=== PATIENT | female | born 1960 | race Caucasian/White ===

== ENCOUNTER 2021-11-10 11:53 | Inpatient (IN) | payer MEDICAID ==
[~2021-11-10] VITALS: Ht 157.5 cm; Wt 107.0 kg
[2021-11-10 14:51] LABS: BASOPHILS % 0.7 % (0.0-2.0); EOSINOPHILS % 5.7 % (0.0-5.0); HEMOGLOBIN. 12.8 g/dL (12.0-16.0); LYMPHOCYTES % 21.5 % (20.0-50.0); MEAN CORPUSCULAR HEMOGLOBIN 31.5 pg (28.0-32.0); MEAN CORPUSCULAR VOLUME 98.9 fL (81.0-99.0); MEAN PLATELET VOLUME 8.1 fl (7.4-10.4); MONOCYTES % 7.6 % (2.0-8.0); NEUTROPHILS % 64.5 % (40.0-76.0); PLATELET 315 x1000/uL (130-400); RED BLOOD CELL COUNT 4.05 mill/uL (4.2-5.4); RED CELL DISTRIBUTION WIDTH 17.8 % (11.6-14.6)
[2021-11-10 14:56] LABS: CHLORIDE 108 mEq/L (98-107)
[2021-11-10] MEDS ORDERED: ENOXAPARIN 100MG/ML SYR SUBCUT ONE (17:00)
[2021-11-11] MEDS ORDERED: ONDANSETRON HCL 4MG/2ML INJ IV PRN (09:00)
[2021-11-11] MEDS ORDERED: ACETAMINOPHEN 325MG TABLET PO PRN (09:00)
[2021-11-11] MEDS ORDERED: DIPHENHYDRAMINE 50MG/ML VIAL IV PRN (09:00)
[2021-11-11] MEDS ORDERED: CLONIDINE 0.1MG TABLET PO PRN (09:00)
[2021-11-11] MEDS ORDERED: IPRATROPIUM/ALBUTEROL 0.5-3(2.5)MG/3ML NEB HHN PRN (09:00)
[2021-11-11] MEDS ORDERED: POTASSIUM CHLORIDE 20MEQ/PACKET PO SCH (09:00)
[2021-11-11 10:30] VITALS: BP 148/66
[2021-11-11 11:43] LABS: INR 1.1; PROTHROMBIN TIME 11.4 sec (9.6-11.0)
[2021-11-11 12:00] VITALS: BP 113/61
[2021-11-11] MEDS: ENOXAPARIN 100MG/ML SYR SUBCUT SCH ×2 (14:09→20:31)
[2021-11-11 16:00] VITALS: BP 112/48
[2021-11-11 20:00] VITALS: BP 93/76
[2021-11-12] VITALS: BP 95/56
[2021-11-12 04:00] VITALS: BP 125/65
[2021-11-12 08:00] VITALS: BP 114/52
[2021-11-12] MEDS: ENOXAPARIN 100MG/ML SYR SUBCUT SCH (08:50)
[2021-11-12 09:55] LABS: BASOPHILS % 0.7 % (0.0-2.0); EOSINOPHILS % 6.9 % (0.0-5.0); HEMATOCRIT. 38.9 % (36.0-48.0); HEMOGLOBIN. 12.8 g/dL (12.0-16.0); LYMPHOCYTES % 21.9 % (20.0-50.0); MEAN CORPUSCULAR HEMOGLOBIN 32.6 pg (28.0-32.0); MEAN CORPUSCULAR VOLUME 98.9 fL (81.0-99.0); MONOCYTES % 5.6 % (2.0-8.0); NEUTROPHILS % 64.9 % (40.0-76.0); PLATELET 300 x1000/uL (130-400); RED BLOOD CELL COUNT 3.93 mill/uL (4.2-5.4); RED CELL DISTRIBUTION WIDTH 17.5 % (11.6-14.6)
[2021-11-12 10:00] LABS: CHLORIDE 108 mEq/L (98-107)
[2021-11-12] MEDS ORDERED: LOV40 SQ (11:22)
[2021-11-12 12:00] VITALS: BP 129/66
[2021-11-12 16:19] VITALS: BP 114/72
== END 2021-11-12 16:43 | DRG 197 ==
LOC: ER 11:53 → 6EST 15:31 → EDBEDREQ 16:44 → EDBEDREQTM 16:44 → ENRESERV 11-11 07:22
PROVIDERS: ADMIT Internal Medicine; ATTEND Internal Medicine
DX: I82.413 Acute embolism and thrombosis of femoral vein, bilateral (principal); I82.433 Acute embolism and thrombosis of popliteal vein, bilateral; E87.6 Hypokalemia; I10 Essential (primary) hypertension; K21.9 Gastro-esophageal reflux disease without esophagitis; M19.90 Unspecified osteoarthritis, unspecified site; Z20.822 Contact with and (suspected) exposure to COVID-19; E66.9 Obesity, unspecified; Z68.41 Body mass index [BMI] 40.0-44.9, adult
CPT/HCPCS: 36415; 80048; 80053; 84443; 85025; 87426; 93970; 99285; J1650

== ENCOUNTER 2022-01-01 22:39 | Emergency (ER) | payer MEDICAID ==
[~2022-01-01] VITALS: Ht 162.6 cm; Wt 82.0 kg
[~2022-01-01 22:39] MED LIST: LOV40 SQ
[2022-01-01] MEDS ORDERED: ONDANSETRON HCL 4MG/2ML INJ IV STA (23:08)
[2022-01-01] MEDS ORDERED: MAGNESIUM/ALUMINUM HYDROXIDE/SIMETHICONE 30ML UDC PO STA (23:08)
[2022-01-01] MEDS ORDERED: SODIUM CHLORIDE 0.9% 1,000 ML IV ONE (23:15)
[2022-01-02 00:38] LABS: HEMATOCRIT. 44.7 % (36.0-48.0); HEMOGLOBIN. 14.4 g/dL (12.0-16.0); MEAN CORPUSCULAR HEMOGLOBIN 31.7 pg (28.0-32.0); MEAN CORPUSCULAR VOLUME 98.4 fL (81.0-99.0); PLATELET 279 x1000/uL (130-400); RED BLOOD CELL COUNT 4.54 mill/uL (4.2-5.4); RED CELL DISTRIBUTION WIDTH 16.9 % (11.6-14.6)
[2022-01-02 00:59] LABS: CHLORIDE 107 mEq/L (98-107)
[2022-01-02] MEDS ORDERED: ONDA4TAB5 MT (02:08)
[2022-01-02 05:26] LABS: PLATELET ESTIMATE NORMAL
[2022-01-02 06:23] VITALS: BP 130/82
== END 2022-01-02 06:32 | disposition home or self-care (01) ==
LOC: ER 22:39
DX: K29.70 Gastritis, unspecified, without bleeding (principal); I10 Essential (primary) hypertension; M19.90 Unspecified osteoarthritis, unspecified site; K21.9 Gastro-esophageal reflux disease without esophagitis; Z86.718 Personal history of other venous thrombosis and embolism; Z87.19 Personal history of other diseases of the digestive system; Z98.890 Other specified postprocedural states; Z79.01 Long term (current) use of anticoagulants
CPT/HCPCS: 36415; 80053; 83605; 83690; 85025; 93005; 96374; 99285; J2405; J7030

== ENCOUNTER 2022-12-11 15:07 | Inpatient (IN) | payer MEDICAID ==
[~2022-12-11] VITALS: Ht 157.5 cm; Wt 79.4 kg
[~2022-12-11 15:07] MED LIST changes: +ACET650S27 RC; +ATOR10TA PO; +BISA10SU62 RC; +CLON0.1T PO; +DOCU100T PO; +ENOX40SY27 SQ; +FERR325T6 PO; +FOLI-43 PO; +IPRA3AMP31 IH; -LOV40 SQ; +MOM PO; +NA P230E RC; +OMEP1CAP32 PO; +ONDA4TAB5 MT; +SENN-155 PO
[2022-12-11] MEDS ORDERED: SODIUM CHLORIDE 0.9% 1,000 ML IV ONE ×3 (16:00→17:30)
[2022-12-11 17:07] LABS: HEMATOCRIT. 30.1 % (36.0-48.0); HEMOGLOBIN. 9.9 g/dL (12.0-16.0); MEAN CORPUSCULAR HEMOGLOBIN 34.5 pg (28.0-32.0); MEAN CORPUSCULAR VOLUME 105.1 fL (81.0-99.0); MEAN PLATELET VOLUME 9.1 fl (7.4-10.4); PLATELET 219 x1000/uL (130-400); RED BLOOD CELL COUNT 2.87 mill/uL (4.2-5.4); RED CELL DISTRIBUTION WIDTH 14.9 % (11.6-14.6)
[2022-12-11] MEDS ORDERED: FLUMAZENIL 0.1 MG/ML 5ML VIAL IV ONE (17:15)
[2022-12-11] MEDS ORDERED: CEFEPIME 1,000 MG in DEXTROSE 5% WATER 50 ML IV SCH (17:30)
[2022-12-11] MEDS ORDERED: VANCOMYCIN 1G PREMIX 200 ML IV SCH (17:30)
[2022-12-11 18:01] LABS: CHLORIDE 106 mEq/L (98-107)
[2022-12-11 18:08] LABS: ETHANOL BLOOD < 10 mg/dL
[2022-12-11] MEDS ORDERED: FLUMAZENIL 0.1 MG/ML 5ML VIAL IV NR (18:30)
[2022-12-11] MEDS ORDERED: NOREPINEPHRINE 8 MG in DEXT 5% WATER 242 ML IV PRN ×2 (19:00→19:30)
[2022-12-11 19:29] LABS: PLATELET ESTIMATE NORMAL
[2022-12-12] VITALS (59 sets, daily range): BP systolic 48–133; BP diastolic 20–89
[2022-12-12 02:24] LABS: CLARITY URINE TURBID (CLEAR); COLOR URINE DARK YELLOW (YELLOW); KETONES URINE TRACE (NEGATIVE); LEUKOCYTE ESTERASE URINE 3+ (NEGATIVE); NITRITE URINE NEGATIVE (NEGATIVE); OCCULT BLOOD URINE 2+ (NEGATIVE); PROTEIN URINE 2+ (NEGATIVE); UROBILINOGEN URINE 0.2 E.U./dL (0.2-1.0)
[2022-12-12 02:44] LABS: *AMPHETAMINES SCREEN URINE NEGATIVE (NEGATIVE); *BARBITURATES SCREEN URINE NEGATIVE (NEGATIVE); *BENZODIAZEPINES SCREEN URINE PRESUMTIVE POSITIVE (NEGATIVE); *COCAINE SCREEN URINE NEGATIVE (NEGATIVE); CANNABINOID URINE SCREEN NEGATIVE (NEGATIVE); METHADONE URINE SCREEN NEGATIVE (NEGATIVE); OPIATES URINE SCREEN NEGATIVE (NEGATIVE); PHENCYCLIDINE URINE SCREEN NEGATIVE (NEGATIVE)
[2022-12-12] MEDS ORDERED: POTASSIUM CHLORIDE INJ 40 MEQ in DEXT 5% WATER 250 ML IV ONE (09:00)
[2022-12-12] MEDS ORDERED: CLONIDINE 0.1MG TABLET PO PRN (09:00)
[2022-12-12] MEDS ORDERED: IPRATROPIUM/ALBUTEROL 0.5-3(2.5)MG/3ML NEB HHN PRN (09:00)
[2022-12-12] MEDS ORDERED: PIPERACILLIN/TAZ 3.375G PREMIX 50 ML IV SCH (09:15)
[2022-12-12] MEDS: KCL 20MEQ/100ML X 2 FOR TOTAL KCL 40MEQ/200ML IV SCH ×2 (09:59→12:31)
[2022-12-12] MEDS: SODIUM CHLORIDE 0.9% 1,000 ML IV SCH ×3 (10:00→22:30)
[2022-12-12] MEDS ORDERED: PIPERACILLIN/TAZOBACTAM 3.375 G in DEXTROSE 5% WATER 50 ML IV NR (10:30)
[2022-12-12] MEDS: CEFEPIME 2,000 MG in DEXT 5% WATER 100 ML IV SCH (12:31)
[2022-12-12] MEDS: PHENYLEPHRINE 100 MG in DEXT 5% WATER 240 ML IV PRN ×2 (12:48→22:27)
[2022-12-12] MEDS: ACETAMINOPHEN 325MG TABLET PO PRN (12:49)
[2022-12-12] MEDS: ONDANSETRON HCL 4MG/2ML INJ IV PRN ×2 (13:03→18:58)
[2022-12-12 13:15] LABS: MEAN CORPUSCULAR HEMOGLOBIN 34.8 pg (28.0-32.0); MEAN PLATELET VOLUME 8.3 fl (7.4-10.4); PLATELET 193 x1000/uL (130-400); RED BLOOD CELL COUNT 3.45 mill/uL (4.2-5.4); RED CELL DISTRIBUTION WIDTH 14.6 % (11.6-14.6)
[2022-12-12 13:20] LABS: HEMATOCRIT. 35.5 % (36.0-48.0)
[2022-12-12] MEDS ORDERED: PIPERACILLIN/TAZOBACTAM 3.375 G in DEXTROSE 5% WATER 50 ML IV SCH (14:00)
[2022-12-12] MEDS ORDERED: VANCOMYCIN 500MG PREMIX 100 ML IV SCH (14:00)
[2022-12-12 14:09] LABS: PLATELET ESTIMATE NORMAL
[2022-12-12 15:05] LABS: VITAMIN B12 SERUM > 2000.0 pg/mL (211-911)
[2022-12-12] MEDS ORDERED: ALBUTEROL (0.083%) 2.5MG/3ML NEB HHN PRN (15:15)
[2022-12-12] MEDS ORDERED: IPRATROPIUM BROMIDE (0.02%) 0.5MG/2.5ML NEB HHN PRN (15:15)
[2022-12-12] MEDS ORDERED: POTASSIUM CHLORIDE 20MEQ/PACKET PO NR (17:00)
[2022-12-12] MEDS: NOREPINEPHRINE 32 MG in DEXT 5% WATER 218 ML IV PRN (18:15)
[2022-12-12 18:25] LABS: BG BASE EXCESS -8.5 mmol/L (-2.0-2.0); BG CARBOXYHEMOGLOBIN 0.3 % (0.5-1.5); BG DEOXYHEMOGLOBIN 3.2 % (0.0-5.0); BG FRACTION INSPIRED OXYGEN 40; BG HCO3 ACT 14.4 mmol/L (22.0-26.0); BG OXYGEN SATURATION 96.8 % (92.0-98.5); BG OXYHEMOGLOBIN 95.5 % (94.0-97.0); BG PCO2 23.9 mmHg (35.0-45.0); BG PH 7.399 (7.350-7.450); BG PO2 85.2 mmHg (75.0-100.0); BG SAMPLE SITE RIGHT RADIAL; BG VENT MODE NASAL CANNULA
[2022-12-12] MEDS ORDERED: ENOXAPARIN 100MG/ML SYR SUBCUT NR (19:15)
[2022-12-12] MEDS ORDERED: NALOXONE HCL 0.4MG/ML VIAL IV PRN (20:15)
[2022-12-12] MEDS: MORPHINE SULFATE 2 MG/ML CPJ (NOT FOR IM USE) IV PRN (20:27)
[2022-12-12 21:24] LABS: INR 1.3
[2022-12-13] VITALS (96 sets, daily range): BP systolic 79–167; BP diastolic 38–136
[2022-12-13] MEDS: NOREPINEPHRINE 32 MG in DEXT 5% WATER 218 ML IV PRN ×2 (02:56→11:50)
[2022-12-13] MEDS: MORPHINE SULFATE 2 MG/ML CPJ (NOT FOR IM USE) IV PRN ×2 (03:32→16:46)
[2022-12-13 05:35] LABS: HEMATOCRIT. 37.7 % (36.0-48.0); HEMOGLOBIN. 12.7 g/dL (12.0-16.0); MEAN CORPUSCULAR HEMOGLOBIN 34.9 pg (28.0-32.0); MEAN CORPUSCULAR VOLUME 103.9 fL (81.0-99.0); MEAN PLATELET VOLUME 8.8 fl (7.4-10.4); PLATELET 167 x1000/uL (130-400); RED BLOOD CELL COUNT 3.63 mill/uL (4.2-5.4); RED CELL DISTRIBUTION WIDTH 14.8 % (11.6-14.6)
[2022-12-13 05:37] LABS: CHLORIDE 110 mEq/L (98-107)
[2022-12-13] MEDS ORDERED: PIPERACILLIN/TAZOBACTAM 3.375 G in DEXTROSE 5% WATER 50 ML IV SCH (06:00)
[2022-12-13] MEDS: PHENYLEPHRINE 100 MG in DEXT 5% WATER 240 ML IV PRN ×2 (08:56→18:54)
[2022-12-13 10:41] LABS: PLATELET ESTIMATE NORMAL
[2022-12-13] MEDS ORDERED: POTASSIUM CHLORIDE INJ 40 MEQ in DEXT 5% WATER 250 ML IV NR (13:00)
[2022-12-13] MEDS ORDERED: VANCOMYCIN 750MG PREMIX 150 ML IV SCH (14:00)
[2022-12-13] MEDS: CEFEPIME 2,000 MG in DEXT 5% WATER 100 ML IV SCH (14:22)
[2022-12-13] MEDS: SODIUM CHLORIDE 0.9% 1,000 ML IV SCH (14:23)
[2022-12-13] MEDS: ENOXAPARIN 100MG/ML SYR SUBCUT SCH (16:40)
[2022-12-14] VITALS (80 sets, daily range): BP systolic 72–123; BP diastolic 15–79
[2022-12-14] MEDS: SODIUM CHLORIDE 0.9% 1,000 ML IV SCH ×2 (01:07→15:49)
[2022-12-14] MEDS: PHENYLEPHRINE 100 MG in DEXT 5% WATER 240 ML IV PRN ×3 (02:12→18:49)
[2022-12-14 05:33] LABS: CHLORIDE 114 mEq/L (98-107)
[2022-12-14] MEDS ORDERED: *PATIENT'S OWN MEDICATION STORAGE XX SCH (05:45)
[2022-12-14 05:46] LABS: BASOPHILS % 0.1 % (0.0-2.0); HEMATOCRIT. 36.6 % (36.0-48.0); HEMOGLOBIN. 12.4 g/dL (12.0-16.0); LYMPHOCYTES % 9.7 % (20.0-50.0); MEAN CORPUSCULAR HEMOGLOBIN 34.6 pg (28.0-32.0); MEAN CORPUSCULAR VOLUME 102.1 fL (81.0-99.0); MEAN PLATELET VOLUME 9.5 fl (7.4-10.4); MONOCYTES % 2.4 % (2.0-8.0); NEUTROPHILS % 86.8 % (40.0-76.0); PLATELET 129 x1000/uL (130-400); RED BLOOD CELL COUNT 3.59 mill/uL (4.2-5.4); RED CELL DISTRIBUTION WIDTH 14.7 % (11.6-14.6)
[2022-12-14] MEDS: ENOXAPARIN 100MG/ML SYR SUBCUT SCH ×2 (06:19→18:20)
[2022-12-14] MEDS ORDERED: POTASSIUM CHLORIDE 20MEQ TABLET SR PO NR (08:00)
[2022-12-14] MEDS: CEFEPIME 2,000 MG in DEXT 5% WATER 100 ML IV SCH (12:28)
[2022-12-14] MEDS: MIDODRINE HCL 5MG TABLET PO SCH ×2 (15:21→21:21)
[2022-12-14] MEDS: MORPHINE SULFATE 2 MG/ML CPJ (NOT FOR IM USE) IV PRN (15:22)
[2022-12-15] VITALS (99 sets, daily range): BP systolic 44–159; BP diastolic 29–143
[2022-12-15] MEDS: PHENYLEPHRINE 100 MG in DEXT 5% WATER 240 ML IV PRN ×2 (04:43→13:52)
[2022-12-15] MEDS: SODIUM CHLORIDE 0.9% 1,000 ML IV SCH ×2 (04:45→18:23)
[2022-12-15 05:31] LABS: BASOPHILS % 0.3 % (0.0-2.0); EOSINOPHILS % 1.6 % (0.0-5.0); HEMATOCRIT. 33.8 % (36.0-48.0); HEMOGLOBIN. 11.6 g/dL (12.0-16.0); LYMPHOCYTES % 18.6 % (20.0-50.0); MEAN CORPUSCULAR HEMOGLOBIN 34.9 pg (28.0-32.0); MEAN CORPUSCULAR VOLUME 101.8 fL (81.0-99.0); MEAN PLATELET VOLUME 9.7 fl (7.4-10.4); MONOCYTES % 4.2 % (2.0-8.0); NEUTROPHILS % 75.3 % (40.0-76.0); PLATELET 126 x1000/uL (130-400); RED BLOOD CELL COUNT 3.32 mill/uL (4.2-5.4); RED CELL DISTRIBUTION WIDTH 14.7 % (11.6-14.6)
[2022-12-15 05:47] LABS: CHLORIDE 119 mEq/L (98-107)
[2022-12-15] MEDS: ENOXAPARIN 100MG/ML SYR SUBCUT SCH ×2 (06:44→18:23)
[2022-12-15] MEDS: MIDODRINE HCL 5MG TABLET PO SCH ×3 (06:46→21:48)
[2022-12-15] MEDS ORDERED: POTASSIUM CHLORIDE 20MEQ TABLET SR PO SCH (11:00)
[2022-12-15] MEDS ORDERED: MAGNESIUM 4 G PREMIX 100 ML IV ONE (11:30)
[2022-12-15] MEDS: CEFEPIME 2,000 MG in DEXT 5% WATER 100 ML IV SCH (13:39)
[2022-12-16] VITALS (88 sets, daily range): BP systolic 71–137; BP diastolic 35–87
[2022-12-16 06:02] LABS: CHLORIDE 114 mEq/L (98-107)
[2022-12-16] MEDS: MIDODRINE HCL 5MG TABLET PO SCH ×3 (06:06→21:17)
[2022-12-16] MEDS: ENOXAPARIN 100MG/ML SYR SUBCUT SCH ×2 (06:06→17:19)
[2022-12-16 07:21] LABS: BASOPHILS % 0.3 % (0.0-2.0); EOSINOPHILS % 2.2 % (0.0-5.0); HEMATOCRIT. 32.9 % (36.0-48.0); HEMOGLOBIN. 11.2 g/dL (12.0-16.0); LYMPHOCYTES % 24.7 % (20.0-50.0); MEAN CORPUSCULAR HEMOGLOBIN 34.7 pg (28.0-32.0); MEAN CORPUSCULAR VOLUME 102.1 fL (81.0-99.0); MEAN PLATELET VOLUME 10.1 fl (7.4-10.4); MONOCYTES % 5.6 % (2.0-8.0); NEUTROPHILS % 67.2 % (40.0-76.0); PLATELET 159 x1000/uL (130-400); RED BLOOD CELL COUNT 3.22 mill/uL (4.2-5.4); RED CELL DISTRIBUTION WIDTH 14.5 % (11.6-14.6)
[2022-12-16] MEDS: PHENYLEPHRINE 100 MG in DEXT 5% WATER 240 ML IV PRN (08:03)
[2022-12-16] MEDS: CEFEPIME 2,000 MG in DEXT 5% WATER 100 ML IV SCH (12:06)
[2022-12-16] MEDS: MEROPENEM 1,000 MG in SODIUM CHLORIDE 0.9% 100 ML IV SCH (20:22)
[2022-12-17] VITALS (97 sets, daily range): BP systolic 83–152; BP diastolic 39–84
[2022-12-17] MEDS: DIPHENHYDRAMINE 50MG/ML VIAL IV PRN ×2 (01:23→02:22)
[2022-12-17] MEDS: PHENYLEPHRINE 100 MG in DEXT 5% WATER 240 ML IV PRN (01:23)
[2022-12-17] MEDS: MEROPENEM 1,000 MG in SODIUM CHLORIDE 0.9% 100 ML IV SCH ×3 (03:15→20:00)
[2022-12-17] MEDS: MIDODRINE HCL 5MG TABLET PO SCH ×3 (06:22→22:42)
[2022-12-17 06:48] LABS: HEMATOCRIT. 31.6 % (36.0-48.0); HEMOGLOBIN. 10.7 g/dL (12.0-16.0); MEAN CORPUSCULAR HEMOGLOBIN 34.9 pg (28.0-32.0); MEAN CORPUSCULAR VOLUME 102.9 fL (81.0-99.0); MEAN PLATELET VOLUME 10.1 fl (7.4-10.4); PLATELET 205 x1000/uL (130-400); RED BLOOD CELL COUNT 3.07 mill/uL (4.2-5.4); RED CELL DISTRIBUTION WIDTH 14.8 % (11.6-14.6)
[2022-12-17 06:52] LABS: CHLORIDE 113 mEq/L (98-107)
[2022-12-17] MEDS: ENOXAPARIN 100MG/ML SYR SUBCUT SCH ×2 (07:07→19:01)
[2022-12-17] MEDS ORDERED: POTASSIUM CHLORIDE 20MEQ TABLET SR PO NR (10:30)
[2022-12-17] MEDS ORDERED: LIDOCAINE HCL 1% 10 MG/ML 10ML VIAL ONE (10:34)
[2022-12-17 12:25] LABS: PLATELET ESTIMATE NORMAL
[2022-12-17] MEDS: GUAIFENESIN 600MG ER TABLET PO SCH ×2 (14:40→22:41)
[2022-12-18] VITALS (86 sets, daily range): BP systolic 80–131; BP diastolic 29–72
[2022-12-18] MEDS: MEROPENEM 1,000 MG in SODIUM CHLORIDE 0.9% 100 ML IV SCH ×3 (04:29→22:34)
[2022-12-18 05:20] LABS: BASOPHILS % 0.2 % (0.0-2.0); EOSINOPHILS % 2.6 % (0.0-5.0); HEMATOCRIT. 32.9 % (36.0-48.0); HEMOGLOBIN. 11.1 g/dL (12.0-16.0); LYMPHOCYTES % 27.9 % (20.0-50.0); MEAN CORPUSCULAR HEMOGLOBIN 34.7 pg (28.0-32.0); MEAN CORPUSCULAR VOLUME 102.9 fL (81.0-99.0); MEAN PLATELET VOLUME 9.1 fl (7.4-10.4); MONOCYTES % 7.4 % (2.0-8.0); NEUTROPHILS % 61.9 % (40.0-76.0); PLATELET 242 x1000/uL (130-400); RED BLOOD CELL COUNT 3.19 mill/uL (4.2-5.4); RED CELL DISTRIBUTION WIDTH 14.7 % (11.6-14.6)
[2022-12-18 05:24] LABS: CHLORIDE 113 mEq/L (98-107)
[2022-12-18] MEDS: MIDODRINE HCL 5MG TABLET PO SCH ×3 (06:03→22:38)
[2022-12-18] MEDS: ENOXAPARIN 100MG/ML SYR SUBCUT SCH ×2 (06:05→17:57)
[2022-12-18] MEDS: GUAIFENESIN 600MG ER TABLET PO SCH ×3 (06:05→22:39)
[2022-12-18] MEDS: DEXT 5%/0.45% NACL 1000ML 1,000 ML IV SCH ×2 (12:21→22:39)
[2022-12-19] VITALS (23 sets, daily range): BP systolic 84–127; BP diastolic 45–70
[2022-12-19 06:10] LABS: BASOPHILS % 0.3 % (0.0-2.0); EOSINOPHILS % 2.3 % (0.0-5.0); HEMATOCRIT. 29.9 % (36.0-48.0); HEMOGLOBIN. 10.1 g/dL (12.0-16.0); LYMPHOCYTES % 27.8 % (20.0-50.0); MEAN CORPUSCULAR VOLUME 103.4 fL (81.0-99.0); MEAN PLATELET VOLUME 8.6 fl (7.4-10.4); MONOCYTES % 7.7 % (2.0-8.0); NEUTROPHILS % 61.9 % (40.0-76.0); PLATELET 295 x1000/uL (130-400); RED BLOOD CELL COUNT 2.89 mill/uL (4.2-5.4); RED CELL DISTRIBUTION WIDTH 14.4 % (11.6-14.6)
[2022-12-19] MEDS: GUAIFENESIN 600MG ER TABLET PO SCH ×3 (06:12→20:58)
[2022-12-19] MEDS: MEROPENEM 1,000 MG in SODIUM CHLORIDE 0.9% 100 ML IV SCH ×3 (06:12→20:57)
[2022-12-19] MEDS: ENOXAPARIN 100MG/ML SYR SUBCUT SCH ×2 (06:13→17:57)
[2022-12-19] MEDS: MIDODRINE HCL 5MG TABLET PO SCH ×3 (06:13→20:58)
[2022-12-19 06:16] LABS: CHLORIDE 111 mEq/L (98-107)
[2022-12-19] MEDS: DEXT 5%/0.45% NACL 1000ML 1,000 ML IV SCH ×2 (06:26→17:05)
[2022-12-19] MEDS ORDERED: POTASSIUM CHLORIDE 20MEQ TABLET SR PO NR (10:15)
[2022-12-20] VITALS (7 sets, daily range): BP systolic 103–108; BP diastolic 45–57
[2022-12-20] MEDS: DEXT 5%/0.45% NACL 1000ML 1,000 ML IV SCH ×3 (03:30→23:30)
[2022-12-20] MEDS: MEROPENEM 1,000 MG in SODIUM CHLORIDE 0.9% 100 ML IV SCH ×3 (04:00→21:18)
[2022-12-20] MEDS: ENOXAPARIN 100MG/ML SYR SUBCUT SCH ×2 (06:08→18:48)
[2022-12-20 06:32] LABS: BASOPHILS % 0.7 % (0.0-2.0); EOSINOPHILS % 1.5 % (0.0-5.0); HEMOGLOBIN. 11.4 g/dL (12.0-16.0); MEAN CORPUSCULAR HEMOGLOBIN 36.1 pg (28.0-32.0); MEAN PLATELET VOLUME 8.8 fl (7.4-10.4); MONOCYTES % 8.2 % (2.0-8.0); NEUTROPHILS % 61.6 % (40.0-76.0); PLATELET 347 x1000/uL (130-400); RED BLOOD CELL COUNT 3.14 mill/uL (4.2-5.4); RED CELL DISTRIBUTION WIDTH 15.1 % (11.6-14.6)
[2022-12-20] MEDS: MIDODRINE HCL 5MG TABLET PO SCH ×3 (06:49→21:19)
[2022-12-20] MEDS: GUAIFENESIN 600MG ER TABLET PO SCH ×3 (06:49→21:19)
[2022-12-20 07:36] LABS: CHLORIDE 110 mEq/L (98-107)
[2022-12-20] MEDS ORDERED: MIDO5TAB4 PO (10:14)
[2022-12-20] MEDS ORDERED: APIX5TAB MT (10:14)
[2022-12-20] MEDS: ACETAMINOPHEN 325MG TABLET PO PRN (21:25)
[2022-12-21 04:00] VITALS: BP 112/51
[2022-12-21] MEDS: GUAIFENESIN 600MG ER TABLET PO SCH ×3 (05:53→21:00)
[2022-12-21] MEDS: MIDODRINE HCL 5MG TABLET PO SCH ×3 (05:53→21:01)
[2022-12-21] MEDS: ENOXAPARIN 100MG/ML SYR SUBCUT SCH ×2 (05:59→17:31)
[2022-12-21 09:46] VITALS: BP 100/52
[2022-12-21 12:00] VITALS: BP 126/53
[2022-12-21] MEDS: DEXT 5%/0.45% NACL 1000ML 1,000 ML IV SCH ×2 (13:15→21:02)
[2022-12-21] MEDS: DIPHENHYDRAMINE 50MG/ML VIAL IV PRN (13:40)
[2022-12-21 16:00] VITALS: BP 123/56
[2022-12-21 20:00] VITALS: BP 99/45
[2022-12-21] MEDS: ACETAMINOPHEN 325MG TABLET PO PRN (20:59)
[2022-12-22] VITALS: BP 91/40
[2022-12-22 04:00] VITALS: BP 91/37
[2022-12-22] MEDS: DEXT 5%/0.45% NACL 1000ML 1,000 ML IV SCH ×2 (05:30→15:51)
[2022-12-22] MEDS: ENOXAPARIN 100MG/ML SYR SUBCUT SCH ×2 (06:33→18:43)
[2022-12-22] MEDS: GUAIFENESIN 600MG ER TABLET PO SCH ×3 (06:33→21:29)
[2022-12-22] MEDS: MIDODRINE HCL 5MG TABLET PO SCH ×3 (06:33→21:27)
[2022-12-22 08:00] VITALS: BP 112/54
[2022-12-22] MEDS ORDERED: BISACODYL 10MG SUPP PR PRN (08:15)
[2022-12-22] MEDS: ACETAMINOPHEN 325MG TABLET PO PRN ×3 (09:03→23:58)
[2022-12-22] MEDS: SIMETHICONE 80MG TABLET CHEW PO PRN (09:36)
[2022-12-22 12:00] VITALS: BP 128/57
[2022-12-22 16:00] VITALS: BP 111/53
[2022-12-22 20:00] VITALS: BP 118/56
[2022-12-23] VITALS: BP 126/60
[2022-12-23 04:00] VITALS: BP 92/41
[2022-12-23] MEDS: GUAIFENESIN 600MG ER TABLET PO SCH ×4 (06:20→21:13)
[2022-12-23] MEDS: MIDODRINE HCL 5MG TABLET PO SCH ×3 (06:21→21:06)
[2022-12-23] MEDS: ENOXAPARIN 100MG/ML SYR SUBCUT SCH ×2 (06:25→17:31)
[2022-12-23] MEDS: DEXT 5%/0.45% NACL 1000ML 1,000 ML IV SCH ×3 (06:25→21:07)
[2022-12-23 08:00] VITALS: BP 108/47
[2022-12-23] MEDS: MICONAZOLE NITRATE 2% OINT 71GM TOP SCH ×2 (09:35→21:07)
[2022-12-23] MEDS: ACETAMINOPHEN 325MG TABLET PO PRN (09:35)
[2022-12-23 12:00] VITALS: BP 112/50
[2022-12-23 16:00] VITALS: BP 141/63
[2022-12-23] MEDS ORDERED: NALOXONE HCL 0.4MG/ML VIAL IV PRN (16:15)
[2022-12-23] MEDS: MORPHINE SULFATE 2 MG/ML CPJ (NOT FOR IM USE) IV PRN (17:37)
[2022-12-23 20:00] VITALS: BP 100/42
[2022-12-24] VITALS: BP 117/53
[2022-12-24] MEDS: MORPHINE SULFATE 2 MG/ML CPJ (NOT FOR IM USE) IV PRN (03:46)
[2022-12-24 04:00] VITALS: BP 113/48
[2022-12-24] MEDS: GUAIFENESIN 600MG ER TABLET PO SCH ×3 (06:00→21:43)
[2022-12-24] MEDS: MIDODRINE HCL 5MG TABLET PO SCH ×3 (06:02→21:44)
[2022-12-24] MEDS: ENOXAPARIN 100MG/ML SYR SUBCUT SCH ×2 (06:02→18:59)
[2022-12-24] MEDS: DEXT 5%/0.45% NACL 1000ML 1,000 ML IV SCH ×2 (06:03→13:56)
[2022-12-24 08:00] VITALS: BP 108/66
[2022-12-24] MEDS: MICONAZOLE NITRATE 2% OINT 71GM TOP SCH ×2 (08:54→22:04)
[2022-12-24] MEDS: ACETAMINOPHEN 325MG TABLET PO PRN ×3 (08:54→21:44)
[2022-12-24 12:00] VITALS: BP 118/62
[2022-12-24 16:00] VITALS: BP 121/62
[2022-12-24 20:00] VITALS: BP 125/59
[2022-12-25] VITALS: BP 113/55
[2022-12-25 04:00] VITALS: BP 121/61
[2022-12-25] MEDS: GUAIFENESIN 600MG ER TABLET PO SCH ×3 (05:07→21:17)
[2022-12-25] MEDS: DEXT 5%/0.45% NACL 1000ML 1,000 ML IV SCH ×3 (05:07→23:30)
[2022-12-25] MEDS: MIDODRINE HCL 5MG TABLET PO SCH ×3 (05:08→21:18)
[2022-12-25] MEDS: ENOXAPARIN 100MG/ML SYR SUBCUT SCH ×2 (05:08→18:07)
[2022-12-25] MEDS: ACETAMINOPHEN 325MG TABLET PO PRN ×3 (05:09→18:06)
[2022-12-25 08:00] VITALS: BP 100/63
[2022-12-25] MEDS: MICONAZOLE NITRATE 2% OINT 71GM TOP SCH ×2 (09:00→21:26)
[2022-12-25 12:00] VITALS: BP 135/55
[2022-12-25 16:00] VITALS: BP 113/58
[2022-12-25 20:00] VITALS: BP 125/64
[2022-12-25] MEDS: SIMETHICONE 80MG TABLET CHEW PO PRN (21:17)
[2022-12-25] MEDS: MORPHINE SULFATE 2 MG/ML CPJ (NOT FOR IM USE) IV PRN (21:17)
[2022-12-26] VITALS: BP 124/62
[2022-12-26 04:00] VITALS: BP 129/66
[2022-12-26] MEDS: GUAIFENESIN 600MG ER TABLET PO SCH ×3 (06:00→22:00)
[2022-12-26] MEDS: MIDODRINE HCL 5MG TABLET PO SCH ×3 (06:00→22:00)
[2022-12-26] MEDS: ENOXAPARIN 100MG/ML SYR SUBCUT SCH ×2 (06:12→18:43)
[2022-12-26 08:00] VITALS: BP 108/55
[2022-12-26] MEDS: MICONAZOLE NITRATE 2% OINT 71GM TOP SCH ×2 (09:00→22:35)
[2022-12-26 12:00] VITALS: BP 119/60
[2022-12-26] MEDS: DEXT 5%/0.45% NACL 1000ML 1,000 ML IV SCH ×2 (13:56→17:33)
[2022-12-26 16:00] VITALS: BP 118/58
[2022-12-26] MEDS: ACETAMINOPHEN 325MG TABLET PO PRN (16:33)
[2022-12-26] MEDS: SIMETHICONE 80MG TABLET CHEW PO PRN (16:33)
[2022-12-26 20:00] VITALS: BP 123/57
[2022-12-26] MEDS: MORPHINE SULFATE 2 MG/ML CPJ (NOT FOR IM USE) IV PRN (22:35)
[2022-12-27] VITALS: BP 117/55
[2022-12-27 04:00] VITALS: BP 116/62
[2022-12-27] MEDS: ENOXAPARIN 100MG/ML SYR SUBCUT SCH ×2 (05:48→17:46)
[2022-12-27] MEDS: MIDODRINE HCL 5MG TABLET PO SCH ×3 (05:48→22:00)
[2022-12-27] MEDS: DEXT 5%/0.45% NACL 1000ML 1,000 ML IV SCH ×2 (05:48→15:39)
[2022-12-27] MEDS: GUAIFENESIN 600MG ER TABLET PO SCH ×3 (05:48→22:33)
[2022-12-27 08:00] VITALS: BP 102/57
[2022-12-27] MEDS: MICONAZOLE NITRATE 2% OINT 71GM TOP SCH (08:34)
[2022-12-27] MEDS: SIMETHICONE 80MG TABLET CHEW PO PRN ×2 (10:28→20:27)
[2022-12-27 12:00] VITALS: BP 106/48
[2022-12-27 15:59] VITALS: BP 120/64
[2022-12-27 16:00] VITALS: BP 120/64
[2022-12-28] VITALS: BP 102/57
[2022-12-28] MEDS: DEXT 5%/0.45% NACL 1000ML 1,000 ML IV SCH ×2 (01:30→13:29)
[2022-12-28 04:00] VITALS: BP 119/65
[2022-12-28] MEDS: MIDODRINE HCL 5MG TABLET PO SCH ×3 (06:00→22:00)
[2022-12-28] MEDS: GUAIFENESIN 600MG ER TABLET PO SCH ×3 (06:00→22:00)
[2022-12-28] MEDS: SIMETHICONE 80MG TABLET CHEW PO PRN ×2 (06:48→22:08)
[2022-12-28] MEDS: ACETAMINOPHEN 325MG TABLET PO PRN ×2 (06:48→18:14)
[2022-12-28] MEDS: ENOXAPARIN 100MG/ML SYR SUBCUT SCH (06:49)
[2022-12-28 08:00] VITALS: BP 122/58
[2022-12-28] MEDS: MICONAZOLE NITRATE 2% OINT 71GM TOP SCH ×2 (09:00→21:00)
[2022-12-28 09:33] LABS: HEMATOCRIT 31.9 % (36.0-48.0); HEMOGLOBIN 10.7 g/dL (12.0-16.0); MEAN CORPUSCULAR HEMOGLOBIN 34.9 pg (28.0-32.0); PLATELET 307 x1000/uL (130-400); RED BLOOD CELL COUNT 3.07 mill/uL (4.2-5.4); RED CELL DISTRIBUTION WIDTH 14.7 % (11.6-14.6)
[2022-12-28 09:42] LABS: CHLORIDE 109 mEq/L (98-107)
[2022-12-28 12:00] VITALS: BP 121/58
[2022-12-28] MEDS ORDERED: POTASSIUM CHLORIDE 20MEQ TABLET SR PO SCH (12:30)
[2022-12-28 16:00] VITALS: BP 121/56
[2022-12-28] MEDS: ENOXAPARIN 80MG/0.8ML SYR SUBCUT SCH (18:14)
[2022-12-28 20:00] VITALS: BP 113/42
[2022-12-29] VITALS: BP 117/65
[2022-12-29 04:00] VITALS: BP 121/66
[2022-12-29] MEDS: GUAIFENESIN 600MG ER TABLET PO SCH ×3 (06:00→21:38)
[2022-12-29] MEDS: MIDODRINE HCL 5MG TABLET PO SCH ×3 (06:00→21:40)
[2022-12-29] MEDS: ACETAMINOPHEN 325MG TABLET PO PRN ×2 (07:24→19:16)
[2022-12-29] MEDS: ENOXAPARIN 80MG/0.8ML SYR SUBCUT SCH ×2 (07:25→19:11)
[2022-12-29] MEDS: DEXT 5%/0.45% NACL 1000ML 1,000 ML IV SCH ×2 (07:29→19:11)
[2022-12-29 08:00] VITALS: BP 108/40
[2022-12-29 12:00] VITALS: BP 107/59
[2022-12-29] MEDS: MICONAZOLE NITRATE 2% OINT 71GM TOP SCH ×2 (12:15→21:45)
[2022-12-29 16:00] VITALS: BP 123/53
[2022-12-29 20:00] VITALS: BP 118/64
[2022-12-30] VITALS: BP 124/61
[2022-12-30 04:00] VITALS: BP 128/74
[2022-12-30] MEDS: DEXT 5%/0.45% NACL 1000ML 1,000 ML IV SCH ×3 (04:56→23:30)
[2022-12-30] MEDS: ENOXAPARIN 80MG/0.8ML SYR SUBCUT SCH ×2 (05:02→17:41)
[2022-12-30] MEDS: GUAIFENESIN 600MG ER TABLET PO SCH ×3 (05:03→21:54)
[2022-12-30] MEDS: MIDODRINE HCL 5MG TABLET PO SCH ×3 (05:03→21:54)
[2022-12-30] MEDS: ACETAMINOPHEN 325MG TABLET PO PRN (05:09)
[2022-12-30 07:52] VITALS: BP 102/46
[2022-12-30] MEDS: MULTIVITAMINS,THER W-MINERALS TABLET PO SCH (09:12)
[2022-12-30] MEDS: MICONAZOLE NITRATE 2% OINT 71GM TOP SCH ×2 (09:13→20:25)
[2022-12-30 12:00] VITALS: BP 109/59
[2022-12-30 16:00] VITALS: BP 118/60
[2022-12-30 20:00] VITALS: BP 126/63
[2022-12-30] MEDS: SIMETHICONE 80MG TABLET CHEW PO PRN (21:54)
[2022-12-31] VITALS: BP 111/58
[2022-12-31 04:00] VITALS: BP 107/51
[2022-12-31] MEDS: ENOXAPARIN 80MG/0.8ML SYR SUBCUT SCH ×2 (05:13→18:02)
[2022-12-31] MEDS: MIDODRINE HCL 5MG TABLET PO SCH ×3 (05:15→21:13)
[2022-12-31] MEDS: GUAIFENESIN 600MG ER TABLET PO SCH ×3 (05:15→21:12)
[2022-12-31 08:05] VITALS: BP 105/48
[2022-12-31] MEDS: DEXT 5%/0.45% NACL 1000ML 1,000 ML IV SCH ×2 (08:40→19:30)
[2022-12-31] MEDS: MULTIVITAMINS,THER W-MINERALS TABLET PO SCH (08:40)
[2022-12-31] MEDS: MICONAZOLE NITRATE 2% OINT 71GM TOP SCH ×2 (08:41→21:13)
[2022-12-31 12:32] VITALS: BP 100/51
[2022-12-31 16:23] VITALS: BP 119/63
[2022-12-31 20:00] VITALS: BP 112/51
[2023-01-01] VITALS: BP 112/60
[2023-01-01] MEDS: ACETAMINOPHEN 325MG TABLET PO PRN ×3 (00:31→21:42)
[2023-01-01 04:00] VITALS: BP 108/47
[2023-01-01] MEDS: DEXT 5%/0.45% NACL 1000ML 1,000 ML IV SCH ×2 (05:59→15:30)
[2023-01-01] MEDS: ENOXAPARIN 80MG/0.8ML SYR SUBCUT SCH ×2 (06:00→17:46)
[2023-01-01] MEDS: MIDODRINE HCL 5MG TABLET PO SCH ×3 (06:00→21:39)
[2023-01-01] MEDS: GUAIFENESIN 600MG ER TABLET PO SCH ×3 (06:01→21:39)
[2023-01-01 08:00] VITALS: BP 129/52
[2023-01-01] MEDS: MICONAZOLE NITRATE 2% OINT 71GM TOP SCH ×2 (09:00→21:39)
[2023-01-01] MEDS: MULTIVITAMINS,THER W-MINERALS TABLET PO SCH (09:47)
[2023-01-01 12:00] VITALS: BP 102/50
[2023-01-01 16:06] VITALS: BP 106/59
[2023-01-01 20:00] VITALS: BP 94/48
[2023-01-02 00:03] VITALS: BP 96/53
[2023-01-02] MEDS: DEXT 5%/0.45% NACL 1000ML 1,000 ML IV SCH ×3 (02:24→23:38)
[2023-01-02 04:23] VITALS: BP 101/59
[2023-01-02] MEDS: MIDODRINE HCL 5MG TABLET PO SCH ×3 (05:45→21:08)
[2023-01-02] MEDS: ENOXAPARIN 80MG/0.8ML SYR SUBCUT SCH ×2 (05:45→19:04)
[2023-01-02] MEDS: GUAIFENESIN 600MG ER TABLET PO SCH ×3 (05:47→21:07)
[2023-01-02 08:00] VITALS: BP 107/56
[2023-01-02] MEDS: MICONAZOLE NITRATE 2% OINT 71GM TOP SCH ×2 (09:00→21:18)
[2023-01-02] MEDS: MULTIVITAMINS,THER W-MINERALS TABLET PO SCH (09:21)
[2023-01-02 12:00] VITALS: BP 106/55
[2023-01-02 16:00] VITALS: BP 106/55
[2023-01-02] MEDS: ACETAMINOPHEN 325MG TABLET PO PRN (18:10)
[2023-01-02 20:00] VITALS: BP 93/52
[2023-01-03] VITALS: BP 101/56
[2023-01-03 04:00] VITALS: BP 99/65
[2023-01-03] MEDS: GUAIFENESIN 600MG ER TABLET PO SCH ×3 (05:04→21:34)
[2023-01-03] MEDS: ENOXAPARIN 80MG/0.8ML SYR SUBCUT SCH ×2 (05:05→18:19)
[2023-01-03] MEDS: MIDODRINE HCL 5MG TABLET PO SCH ×3 (05:05→21:34)
[2023-01-03] MEDS: DEXT 5%/0.45% NACL 1000ML 1,000 ML IV SCH ×2 (07:30→18:20)
[2023-01-03 08:00] VITALS: BP 105/54
[2023-01-03] MEDS: MICONAZOLE NITRATE 2% OINT 71GM TOP SCH ×2 (09:00→21:00)
[2023-01-03] MEDS: MULTIVITAMINS,THER W-MINERALS TABLET PO SCH (09:00)
[2023-01-03 12:00] VITALS: BP 105/50
[2023-01-03 16:00] VITALS: BP 129/59
[2023-01-03 20:00] VITALS: BP 107/46
[2023-01-03] MEDS: ACETAMINOPHEN 325MG TABLET PO PRN (21:46)
[2023-01-04] VITALS: BP 98/57
[2023-01-04] MEDS: DEXT 5%/0.45% NACL 1000ML 1,000 ML IV SCH ×2 (03:22→23:30)
[2023-01-04 04:00] VITALS: BP 102/55
[2023-01-04] MEDS: GUAIFENESIN 600MG ER TABLET PO SCH ×2 (05:22→21:26)
[2023-01-04] MEDS: MIDODRINE HCL 5MG TABLET PO SCH ×2 (05:24→21:30)
[2023-01-04] MEDS: ENOXAPARIN 80MG/0.8ML SYR SUBCUT SCH (05:24)
[2023-01-04] MEDS ORDERED: LIDOCAINE 2%/EPINEPHRINE 1:200,000 20 ML VIAL INJ NR (11:00)
[2023-01-04] MEDS ORDERED: LIDOCAINE HCL 2% JELLY 5ML TOP NR (11:00)
[2023-01-04] MEDS: MULTIVITAMINS,THER W-MINERALS TABLET PO SCH (11:30)
[2023-01-04] MEDS ORDERED: LIDOCAINE 2% 6ML GLYDO MM NR ×2 (11:30→11:45)
[2023-01-04] MEDS: ACETAMINOPHEN 325MG TABLET PO PRN ×2 (11:31→21:22)
[2023-01-04 16:00] VITALS: BP 100/50
[2023-01-04 20:00] VITALS: BP 112/67
[2023-01-04] MEDS: MICONAZOLE NITRATE 2% OINT 71GM TOP SCH (21:00)
[2023-01-05] VITALS: BP 105/47
[2023-01-05 04:00] VITALS: BP 104/55
[2023-01-05] MEDS ORDERED: POVIDONE-IODINE OINT 28.4GM TOP NR (05:00)
[2023-01-05] MEDS: MIDODRINE HCL 5MG TABLET PO SCH ×3 (06:16→21:24)
[2023-01-05] MEDS: ACETAMINOPHEN 325MG TABLET PO PRN ×2 (06:17→15:51)
[2023-01-05] MEDS: DEXT 5%/0.45% NACL 1000ML 1,000 ML IV SCH ×2 (09:30→22:30)
[2023-01-05] MEDS: MULTIVITAMINS,THER W-MINERALS TABLET PO SCH (10:41)
[2023-01-05] MEDS: MICONAZOLE NITRATE 2% OINT 71GM TOP SCH ×2 (10:41→21:21)
[2023-01-05] MEDS: GUAIFENESIN 600MG ER TABLET PO SCH ×2 (15:42→21:21)
[2023-01-05 20:00] VITALS: BP 113/55
[2023-01-06] VITALS: BP 105/58
[2023-01-06 04:00] VITALS: BP 102/48
[2023-01-06] MEDS: GUAIFENESIN 600MG ER TABLET PO SCH ×3 (05:25→20:48)
[2023-01-06] MEDS: MIDODRINE HCL 5MG TABLET PO SCH ×3 (05:25→20:54)
[2023-01-06] MEDS: DEXT 5%/0.45% NACL 1000ML 1,000 ML IV SCH ×2 (05:31→17:05)
[2023-01-06 06:08] LABS: CHLORIDE 108 mEq/L (98-107)
[2023-01-06 06:14] LABS: BASOPHILS % 0.4 % (0.0-2.0); EOSINOPHILS % 8.4 % (0.0-5.0); HEMATOCRIT. 32.7 % (36.0-48.0); LYMPHOCYTES % 26.8 % (20.0-50.0); MEAN CORPUSCULAR HEMOGLOBIN 35.1 pg (28.0-32.0); MEAN CORPUSCULAR VOLUME 104.5 fL (81.0-99.0); MEAN PLATELET VOLUME 7.9 fl (7.4-10.4); MONOCYTES % 7.5 % (2.0-8.0); NEUTROPHILS % 56.9 % (40.0-76.0); PLATELET 400 x1000/uL (130-400); RED BLOOD CELL COUNT 3.13 mill/uL (4.2-5.4); RED CELL DISTRIBUTION WIDTH 15.3 % (11.6-14.6)
[2023-01-06 08:00] VITALS: BP 116/56
[2023-01-06] MEDS: MULTIVITAMINS,THER W-MINERALS TABLET PO SCH (09:54)
[2023-01-06 12:00] VITALS: BP 126/60
[2023-01-06] MEDS: MICONAZOLE NITRATE 2% OINT 71GM TOP SCH ×2 (13:07→20:54)
[2023-01-06 16:00] VITALS: BP 126/59
[2023-01-06] MEDS: ENOXAPARIN 80MG/0.8ML SYR SUBCUT SCH ×2 (17:32→18:00)
[2023-01-06 20:00] VITALS: BP 114/58
[2023-01-06] MEDS: DIPHENHYDRAMINE 50MG/ML VIAL IV PRN (20:48)
[2023-01-07] VITALS: BP 98/53
[2023-01-07] MEDS: DEXT 5%/0.45% NACL 1000ML 1,000 ML IV SCH ×3 (00:27→21:33)
[2023-01-07 04:00] VITALS: BP 92/48
[2023-01-07] MEDS: ENOXAPARIN 80MG/0.8ML SYR SUBCUT SCH ×2 (06:46→17:09)
[2023-01-07] MEDS: GUAIFENESIN 600MG ER TABLET PO SCH ×3 (06:47→21:30)
[2023-01-07] MEDS: MIDODRINE HCL 5MG TABLET PO SCH ×3 (06:48→22:00)
[2023-01-07 08:00] VITALS: BP 97/62
[2023-01-07] MEDS: MULTIVITAMINS,THER W-MINERALS TABLET PO SCH (08:20)
[2023-01-07] MEDS: MICONAZOLE NITRATE 2% OINT 71GM TOP SCH ×2 (08:23→21:00)
[2023-01-07 12:00] VITALS: BP 107/61
[2023-01-07 16:00] VITALS: BP 100/64
[2023-01-07 20:00] VITALS: BP 103/58
[2023-01-07] MEDS: ACETAMINOPHEN 325MG TABLET PO PRN (21:32)
[2023-01-08] VITALS: BP 103/42
[2023-01-08 04:00] VITALS: BP 104/55
[2023-01-08] MEDS: MIDODRINE HCL 5MG TABLET PO SCH ×3 (06:00→21:49)
[2023-01-08] MEDS: ENOXAPARIN 80MG/0.8ML SYR SUBCUT SCH ×2 (06:06→17:09)
[2023-01-08] MEDS: GUAIFENESIN 600MG ER TABLET PO SCH ×3 (06:06→21:50)
[2023-01-08 08:00] VITALS: BP 108/53
[2023-01-08] MEDS: MULTIVITAMINS,THER W-MINERALS TABLET PO SCH (08:53)
[2023-01-08] MEDS: DEXT 5%/0.45% NACL 1000ML 1,000 ML IV SCH ×2 (08:53→17:07)
[2023-01-08] MEDS: ACETAMINOPHEN 325MG TABLET PO PRN (08:57)
[2023-01-08] MEDS: MICONAZOLE NITRATE 2% OINT 71GM TOP SCH ×2 (09:05→21:00)
[2023-01-08 12:00] VITALS: BP 108/60
[2023-01-08 16:00] VITALS: BP 106/57
[2023-01-08 20:00] VITALS: BP 114/50
[2023-01-09] VITALS: BP 91/42
[2023-01-09] MEDS: ACETAMINOPHEN 325MG TABLET PO PRN (01:26)
[2023-01-09] MEDS: DEXT 5%/0.45% NACL 1000ML 1,000 ML IV SCH ×3 (03:26→23:30)
[2023-01-09] MEDS: MIDODRINE HCL 5MG TABLET PO SCH ×3 (05:47→21:39)
[2023-01-09] MEDS: GUAIFENESIN 600MG ER TABLET PO SCH ×3 (05:48→21:37)
[2023-01-09] MEDS: ENOXAPARIN 80MG/0.8ML SYR SUBCUT SCH ×2 (06:00→17:40)
[2023-01-09 07:14] VITALS: BP 110/49
[2023-01-09 08:00] VITALS: BP 105/56
[2023-01-09] MEDS: MULTIVITAMINS,THER W-MINERALS TABLET PO SCH (11:02)
[2023-01-09 12:00] VITALS: BP 105/53
[2023-01-09 16:00] VITALS: BP 94/40
[2023-01-09 20:00] VITALS: BP 94/52
[2023-01-09] MEDS: MICONAZOLE NITRATE 2% OINT 71GM TOP SCH ×2 (21:00→21:40)
[2023-01-10] MEDS: ENOXAPARIN 80MG/0.8ML SYR SUBCUT SCH ×2 (06:00→18:00)
[2023-01-10] MEDS: GUAIFENESIN 600MG ER TABLET PO SCH ×3 (07:18→21:39)
[2023-01-10] MEDS: MIDODRINE HCL 5MG TABLET PO SCH ×2 (07:18→21:40)
[2023-01-10] MEDS: MULTIVITAMINS,THER W-MINERALS TABLET PO SCH (09:00)
[2023-01-10 11:05] VITALS: BP 123/65
[2023-01-10 12:34] VITALS: BP 110/60
[2023-01-10 16:27] VITALS: BP 116/58
[2023-01-10] MEDS ORDERED: NALOXONE HCL 0.4MG/ML VIAL IV PRN (17:45)
[2023-01-10] MEDS: MORPHINE SULFATE 2 MG/ML CPJ (NOT FOR IM USE) IV PRN (17:56)
[2023-01-10] MEDS ORDERED: MORPHINE SULFATE 2 MG/ML CPJ (NOT FOR IM USE) IV PRN (18:00)
[2023-01-10] MEDS: DEXT 5%/0.45% NACL 1000ML 1,000 ML IV SCH (19:30)
[2023-01-10 20:00] VITALS: BP 109/57
[2023-01-11] VITALS: BP 107/47
[2023-01-11 04:00] VITALS: BP 98/53
[2023-01-11] MEDS: DEXT 5%/0.45% NACL 1000ML 1,000 ML IV SCH ×2 (05:30→21:02)
[2023-01-11] MEDS: GUAIFENESIN 600MG ER TABLET PO SCH ×3 (06:06→21:01)
[2023-01-11] MEDS: ENOXAPARIN 80MG/0.8ML SYR SUBCUT SCH ×2 (06:07→17:55)
[2023-01-11] MEDS: MIDODRINE HCL 5MG TABLET PO SCH ×2 (06:07→16:08)
[2023-01-11 08:00] VITALS: BP 101/55
[2023-01-11] MEDS: MULTIVITAMINS,THER W-MINERALS TABLET PO SCH (09:10)
[2023-01-11] MEDS: SIMETHICONE 80MG TABLET CHEW PO PRN ×2 (09:18→17:59)
[2023-01-11] MEDS: MORPHINE SULFATE 2 MG/ML CPJ (NOT FOR IM USE) IV PRN ×3 (09:40→22:30)
[2023-01-11 12:00] VITALS: BP 110/60
[2023-01-11 16:00] VITALS: BP_SYST 109; BP_SYST 112; BP_DIAS 58; BP_DIAS 61
[2023-01-11 20:00] VITALS: BP 116/66
[2023-01-12] VITALS: BP 108/53
[2023-01-12 04:00] VITALS: BP 108/53
[2023-01-12] MEDS: ENOXAPARIN 80MG/0.8ML SYR SUBCUT SCH ×2 (05:19→18:34)
[2023-01-12] MEDS: GUAIFENESIN 600MG ER TABLET PO SCH ×3 (05:19→21:03)
[2023-01-12] MEDS: DEXT 5%/0.45% NACL 1000ML 1,000 ML IV SCH ×3 (05:20→20:53)
[2023-01-12 08:00] VITALS: BP 122/62
[2023-01-12] MEDS: MULTIVITAMINS,THER W-MINERALS TABLET PO SCH (09:36)
[2023-01-12] MEDS: MORPHINE SULFATE 2 MG/ML CPJ (NOT FOR IM USE) IV PRN ×2 (11:33→18:17)
[2023-01-12 12:00] VITALS: BP 126/60
[2023-01-12 16:00] VITALS: BP 126/68
[2023-01-12 20:00] VITALS: BP 110/66
[2023-01-13] VITALS: BP 101/49
[2023-01-13] MEDS: MORPHINE SULFATE 2 MG/ML CPJ (NOT FOR IM USE) IV PRN (01:17)
[2023-01-13 04:00] VITALS: BP 97/42
[2023-01-13] MEDS: GUAIFENESIN 600MG ER TABLET PO SCH ×3 (06:10→21:56)
[2023-01-13] MEDS: ENOXAPARIN 80MG/0.8ML SYR SUBCUT SCH ×2 (06:10→18:00)
[2023-01-13] MEDS: DEXT 5%/0.45% NACL 1000ML 1,000 ML IV SCH ×2 (06:11→17:30)
[2023-01-13 08:00] VITALS: BP_SYST 137; BP_SYST 97; BP_DIAS 48; BP_DIAS 53
[2023-01-13] MEDS: MULTIVITAMINS,THER W-MINERALS TABLET PO SCH (09:53)
[2023-01-13 12:00] VITALS: BP 111/60
[2023-01-13 16:00] VITALS: BP 103/55
[2023-01-13 21:47] VITALS: BP 110/68
[2023-01-14 00:22] VITALS: BP 95/51
[2023-01-14] MEDS: DEXT 5%/0.45% NACL 1000ML 1,000 ML IV SCH ×3 (04:04→23:30)
[2023-01-14 05:53] LABS: BASOPHILS % 0.3 % (0.0-2.0); EOSINOPHILS % 6.3 % (0.0-5.0); HEMATOCRIT. 34.3 % (36.0-48.0); HEMOGLOBIN. 11.3 g/dL (12.0-16.0); LYMPHOCYTES % 32.9 % (20.0-50.0); MEAN CORPUSCULAR HEMOGLOBIN 34.2 pg (28.0-32.0); MEAN CORPUSCULAR VOLUME 103.8 fL (81.0-99.0); MEAN PLATELET VOLUME 7.8 fl (7.4-10.4); NEUTROPHILS % 52.5 % (40.0-76.0); PLATELET 427 x1000/uL (130-400); RED CELL DISTRIBUTION WIDTH 14.9 % (11.6-14.6)
[2023-01-14] MEDS: GUAIFENESIN 600MG ER TABLET PO SCH ×2 (06:13→13:17)
[2023-01-14] MEDS: ENOXAPARIN 80MG/0.8ML SYR SUBCUT SCH ×2 (06:21→17:41)
[2023-01-14 07:08] LABS: CHLORIDE 107 mEq/L (98-107)
[2023-01-14 08:00] VITALS: BP 103/57
[2023-01-14] MEDS: MULTIVITAMINS,THER W-MINERALS TABLET PO SCH (08:56)
[2023-01-14 12:00] VITALS: BP 108/53
[2023-01-14 16:00] VITALS: BP 120/57
[2023-01-14 20:00] VITALS: BP 105/61
[2023-01-14] MEDS: MORPHINE SULFATE 2 MG/ML CPJ (NOT FOR IM USE) IV PRN (21:39)
[2023-01-15] VITALS: BP 111/65
[2023-01-15] MEDS: MORPHINE SULFATE 2 MG/ML CPJ (NOT FOR IM USE) IV PRN ×2 (01:40→10:57)
[2023-01-15 04:00] VITALS: BP 102/62
[2023-01-15] MEDS: ENOXAPARIN 80MG/0.8ML SYR SUBCUT SCH ×2 (05:23→17:54)
[2023-01-15 08:00] VITALS: BP 120/57
[2023-01-15] MEDS: MULTIVITAMINS,THER W-MINERALS TABLET PO SCH (08:38)
[2023-01-15] MEDS: DEXT 5%/0.45% NACL 1000ML 1,000 ML IV SCH (08:38)
[2023-01-15 12:00] VITALS: BP 117/58
[2023-01-15 16:00] VITALS: BP 116/59
[2023-01-15 20:00] VITALS: BP 112/54
[2023-01-15] MEDS ORDERED: ONDANSETRON HCL 4MG/2ML INJ IV PRN (20:45)
[2023-01-15] MEDS ORDERED: NALOXONE HCL 0.4MG/ML VIAL IV PRN (21:00)
[2023-01-15] MEDS: HYDROCODONE/ACETAMINOPHEN 5/325MG TABLET PO PRN (21:16)
[2023-01-16] VITALS: BP 115/55
[2023-01-16] MEDS: SIMETHICONE 80MG TABLET CHEW PO PRN (01:41)
[2023-01-16 04:00] VITALS: BP 118/62
[2023-01-16] MEDS: ENOXAPARIN 80MG/0.8ML SYR SUBCUT SCH ×2 (05:18→17:32)
[2023-01-16] MEDS: HYDROCODONE/ACETAMINOPHEN 5/325MG TABLET PO PRN ×3 (05:18→20:40)
[2023-01-16 08:46] VITALS: BP 99/57
[2023-01-16] MEDS: MULTIVITAMINS,THER W-MINERALS TABLET PO SCH (08:59)
[2023-01-16 12:00] VITALS: BP 100/51
[2023-01-16 15:30] VITALS: BP 116/50
[2023-01-16 20:00] VITALS: BP 107/52
[2023-01-17] VITALS: BP 102/60
[2023-01-17 04:45] VITALS: BP 105/53
[2023-01-17] MEDS: HYDROCODONE/ACETAMINOPHEN 5/325MG TABLET PO PRN ×3 (05:55→20:08)
[2023-01-17] MEDS: ENOXAPARIN 80MG/0.8ML SYR SUBCUT SCH (05:59)
[2023-01-17] MEDS: MULTIVITAMINS,THER W-MINERALS TABLET PO SCH (08:23)
[2023-01-17 08:49] VITALS: BP 90/50
[2023-01-17 12:37] VITALS: BP 93/50
[2023-01-17 15:54] VITALS: BP 104/61
[2023-01-17] MEDS: ENOXAPARIN 100MG/ML SYR SUBCUT SCH (17:31)
[2023-01-17 20:00] VITALS: BP 97/51
[2023-01-18] VITALS: BP 108/58
[2023-01-18 04:00] VITALS: BP 114/59
[2023-01-18] MEDS: ENOXAPARIN 100MG/ML SYR SUBCUT SCH ×2 (05:43→17:23)
[2023-01-18] MEDS: MULTIVITAMINS,THER W-MINERALS TABLET PO SCH (08:47)
[2023-01-18 11:29] VITALS: BP 107/61
[2023-01-18 16:48] VITALS: BP 98/48
[2023-01-18 20:00] VITALS: BP 94/60
[2023-01-19] VITALS: BP 101/47
[2023-01-19] MEDS: HYDROCODONE/ACETAMINOPHEN 5/325MG TABLET PO PRN (01:31)
[2023-01-19 04:00] VITALS: BP 98/49
[2023-01-19] MEDS: ENOXAPARIN 100MG/ML SYR SUBCUT SCH (06:28)
[2023-01-19 08:00] VITALS: BP 121/62
[2023-01-19] MEDS: MULTIVITAMINS,THER W-MINERALS TABLET PO SCH (09:29)
[2023-01-19 12:00] VITALS: BP 114/59
[2023-01-19 16:00] VITALS: BP 110/68
[2023-01-19] MEDS: ENOXAPARIN 80MG/0.8ML SYR SUBCUT SCH (17:12)
[2023-01-19 20:00] VITALS: BP 113/53
[2023-01-20] VITALS: BP 91/44
[2023-01-20] MEDS: HYDROCODONE/ACETAMINOPHEN 5/325MG TABLET PO PRN ×3 (00:03→16:59)
[2023-01-20 04:00] VITALS: BP 102/98
[2023-01-20] MEDS: ENOXAPARIN 80MG/0.8ML SYR SUBCUT SCH ×2 (06:15→17:01)
[2023-01-20 08:00] VITALS: BP 100/59
[2023-01-20] MEDS: MULTIVITAMINS,THER W-MINERALS TABLET PO SCH (09:28)
[2023-01-20 12:00] VITALS: BP 115/58
[2023-01-20 16:00] VITALS: BP 98/50
[2023-01-20 20:00] VITALS: BP 105/58
[2023-01-21 04:00] VITALS: BP 138/55
[2023-01-21] MEDS: ENOXAPARIN 80MG/0.8ML SYR SUBCUT SCH ×2 (05:26→18:03)
[2023-01-21 08:00] VITALS: BP 113/54
[2023-01-21] MEDS: MULTIVITAMINS,THER W-MINERALS TABLET PO SCH (09:58)
[2023-01-21] MEDS: HYDROCODONE/ACETAMINOPHEN 5/325MG TABLET PO PRN (11:05)
[2023-01-21] MEDS ORDERED: NALOXONE HCL 0.4MG/ML VIAL IV PRN (11:15)
[2023-01-21 12:00] VITALS: BP 116/53
[2023-01-21 16:00] VITALS: BP 121/66
[2023-01-21 20:00] VITALS: BP 109/59
[2023-01-22] VITALS: BP 93/51
[2023-01-22 04:00] VITALS: BP 100/58
[2023-01-22] MEDS: ENOXAPARIN 80MG/0.8ML SYR SUBCUT SCH ×2 (05:58→18:10)
[2023-01-22 08:00] VITALS: BP 106/57
[2023-01-22] MEDS: MULTIVITAMINS,THER W-MINERALS TABLET PO SCH (10:18)
[2023-01-22 12:00] VITALS: BP 110/59
[2023-01-22 16:00] VITALS: BP 131/64
[2023-01-22] MEDS: ACETAMINOPHEN 325MG TABLET PO PRN (19:34)
[2023-01-22 20:00] VITALS: BP 100/54
[2023-01-23] VITALS: BP 110/52
[2023-01-23 04:00] VITALS: BP 105/62
[2023-01-23] MEDS: ACETAMINOPHEN 325MG TABLET PO PRN ×2 (04:39→22:29)
[2023-01-23] MEDS: ENOXAPARIN 80MG/0.8ML SYR SUBCUT SCH ×2 (06:46→17:43)
[2023-01-23 08:00] VITALS: BP 121/62
[2023-01-23] MEDS: MULTIVITAMINS,THER W-MINERALS TABLET PO SCH (09:11)
[2023-01-23 12:00] VITALS: BP 123/63
[2023-01-23 16:00] VITALS: BP 102/62
[2023-01-23 20:00] VITALS: BP 108/61
[2023-01-24 04:00] VITALS: BP 110/66
[2023-01-24 06:00] VITALS: BP 120/80
[2023-01-24] MEDS: ENOXAPARIN 80MG/0.8ML SYR SUBCUT SCH ×2 (06:11→17:44)
[2023-01-24 08:00] VITALS: BP 116/61
[2023-01-24] MEDS: MULTIVITAMINS,THER W-MINERALS TABLET PO SCH (09:23)
[2023-01-24 12:00] VITALS: BP 120/68
[2023-01-24 16:00] VITALS: BP 112/60
[2023-01-24] MEDS: ACETAMINOPHEN 325MG TABLET PO PRN ×2 (16:56→20:33)
[2023-01-24 20:00] VITALS: BP 113/65
[2023-01-25] VITALS: BP 120/50
[2023-01-25 04:00] VITALS: BP 109/62
[2023-01-25] MEDS: ACETAMINOPHEN 325MG TABLET PO PRN (05:53)
[2023-01-25] MEDS: ENOXAPARIN 80MG/0.8ML SYR SUBCUT SCH ×2 (05:57→19:16)
[2023-01-25 08:00] VITALS: BP 108/62
[2023-01-25] MEDS: MULTIVITAMINS,THER W-MINERALS TABLET PO SCH (09:20)
[2023-01-25] MEDS: HYDROCODONE/ACETAMINOPHEN 5/325MG TABLET PO PRN (10:03)
[2023-01-25 12:00] VITALS: BP 109/54
[2023-01-25 16:00] VITALS: BP 112/55
[2023-01-25 20:00] VITALS: BP 115/65
[2023-01-26] VITALS: BP 122/80
[2023-01-26] MEDS: HYDROCODONE/ACETAMINOPHEN 5/325MG TABLET PO PRN (01:02)
[2023-01-26 04:00] VITALS: BP 140/66
[2023-01-26] MEDS: ENOXAPARIN 80MG/0.8ML SYR SUBCUT SCH ×2 (06:58→18:37)
[2023-01-26] MEDS: ACETAMINOPHEN 325MG TABLET PO PRN (07:02)
[2023-01-26 08:00] VITALS: BP 114/62
[2023-01-26 12:00] VITALS: BP 112/70
[2023-01-26] MEDS: MULTIVITAMINS,THER W-MINERALS TABLET PO SCH (12:40)
[2023-01-26 16:00] VITALS: BP 113/65
[2023-01-26 20:00] VITALS: BP 120/54
[2023-01-27] MEDS: ENOXAPARIN 80MG/0.8ML SYR SUBCUT SCH ×2 (06:34→17:22)
[2023-01-27 06:59] LABS: BASOPHILS % 0.2 % (0.0-2.0); EOSINOPHILS % 3.4 % (0.0-5.0); HEMATOCRIT. 34.3 % (36.0-48.0); HEMOGLOBIN. 11.6 g/dL (12.0-16.0); LYMPHOCYTES % 27.8 % (20.0-50.0); MEAN CORPUSCULAR HEMOGLOBIN 34.3 pg (28.0-32.0); MEAN CORPUSCULAR VOLUME 101.1 fL (81.0-99.0); MEAN PLATELET VOLUME 7.5 fl (7.4-10.4); MONOCYTES % 7.6 % (2.0-8.0); PLATELET 522 x1000/uL (130-400); RED BLOOD CELL COUNT 3.39 mill/uL (4.2-5.4); RED CELL DISTRIBUTION WIDTH 14.6 % (11.6-14.6)
[2023-01-27] MEDS: MULTIVITAMINS,THER W-MINERALS TABLET PO SCH (07:48)
[2023-01-27 08:00] VITALS: BP 107/64
[2023-01-27 12:00] VITALS: BP 107/59
[2023-01-27] MEDS: ACETAMINOPHEN 325MG TABLET PO PRN (14:57)
[2023-01-27 20:00] VITALS: BP 95/43
[2023-01-28] VITALS: BP 102/47
[2023-01-28 04:00] VITALS: BP 128/66
[2023-01-28] MEDS: ENOXAPARIN 80MG/0.8ML SYR SUBCUT SCH ×2 (05:24→18:53)
[2023-01-28 08:00] VITALS: BP 122/64
[2023-01-28 11:56] VITALS: BP 113/76
[2023-01-28 16:00] VITALS: BP 124/74
[2023-01-28 20:00] VITALS: BP 123/80
[2023-01-29] VITALS: BP 118/66
[2023-01-29 04:00] VITALS: BP 105/59
[2023-01-29] MEDS: ENOXAPARIN 80MG/0.8ML SYR SUBCUT SCH ×2 (05:53→17:16)
[2023-01-29 08:00] VITALS: BP 105/57
[2023-01-29 12:00] VITALS: BP 124/60
[2023-01-29 16:00] VITALS: BP 112/58
[2023-01-29 20:00] VITALS: BP 103/60
[2023-01-30] VITALS: BP 109/61
[2023-01-30] MEDS: ACETAMINOPHEN 325MG TABLET PO PRN (00:44)
[2023-01-30 04:00] VITALS: BP 116/69
[2023-01-30] MEDS: ENOXAPARIN 80MG/0.8ML SYR SUBCUT SCH ×2 (05:59→17:08)
[2023-01-30 08:00] VITALS: BP 105/60
[2023-01-30] MEDS ORDERED: NALOXONE HCL 0.4MG/ML VIAL IV PRN (11:00)
[2023-01-30 12:00] VITALS: BP 110/60
[2023-01-30] MEDS: HYDROCODONE/ACETAMINOPHEN 5/325MG TABLET PO PRN ×2 (13:41→23:05)
[2023-01-30 16:00] VITALS: BP 105/43
[2023-01-30 17:45] LABS: CHLORIDE 107 mEq/L (98-107)
[2023-01-30 23:03] VITALS: BP 118/64
[2023-01-31 04:00] VITALS: BP 100/58
[2023-01-31] MEDS: ENOXAPARIN 80MG/0.8ML SYR SUBCUT SCH ×2 (06:56→18:00)
[2023-01-31 07:16] LABS: CHLORIDE 104 mEq/L (98-107)
[2023-01-31 12:00] VITALS: BP 104/61
[2023-01-31] MEDS: HYDROCODONE/ACETAMINOPHEN 5/325MG TABLET PO PRN (15:52)
[2023-01-31 16:00] VITALS: BP 117/60
[2023-01-31 20:00] VITALS: BP 112/58
[2023-02-01] MEDS: ENOXAPARIN 80MG/0.8ML SYR SUBCUT SCH (05:30)
[2023-02-01 08:00] VITALS: BP 110/60
[2023-02-01 12:00] VITALS: BP 114/59
[2023-02-01 13:59] VITALS: BP_SYST 112; BP_SYST 114; BP_DIAS 59; BP_DIAS 60
== END 2023-02-01 16:12 | DRG 710 ==
LOC: ER 15:07 → MICUSO 19:27 → EDBEDREQ 19:34 → EDBEDREQTM 19:34 → CVICU 12-12 09:06 → 7EST 12-19 11:15 → 5WST 12-31 00:52
PROVIDERS: ADMIT Internal Medicine; ATTEND Internal Medicine
PROC: 05HY33Z Insertion of Infusion Device into Upper Vein, Percutaneous Approach (ICD-10-PCS; 2022-12-17)
PROC: 0KBP0ZZ Excision of Left Hip Muscle, Open Approach (ICD-10-PCS; principal; 2022-12-29)
PROC: 0KBN0ZZ Excision of Right Hip Muscle, Open Approach (ICD-10-PCS; 2022-12-29)
PROC: 0JB90ZZ Excision of Buttock Subcutaneous Tissue and Fascia, Open Approach (ICD-10-PCS; 2022-12-29)
PROC: 0KBP0ZZ Excision of Left Hip Muscle, Open Approach (ICD-10-PCS; 2023-01-06)
PROC: 0KBN0ZZ Excision of Right Hip Muscle, Open Approach (ICD-10-PCS; 2023-01-06)
PROC: 0JB90ZZ Excision of Buttock Subcutaneous Tissue and Fascia, Open Approach (ICD-10-PCS; 2023-01-06)
DX: A41.9 Sepsis, unspecified organism (principal); R65.21 Severe sepsis with septic shock; N17.0 Acute kidney failure with tubular necrosis; I82.411 Acute embolism and thrombosis of right femoral vein; L89.154 Pressure ulcer of sacral region, stage 4; L89.313 Pressure ulcer of right buttock, stage 3; E88.09 Other disorders of plasma-protein metabolism, not elsewhere classified; K57.92 Diverticulitis of intestine, part unspecified, without perforation or abscess without bleeding; N39.0 Urinary tract infection, site not specified; I82.412 Acute embolism and thrombosis of left femoral vein; E87.6 Hypokalemia; D53.9 Nutritional anemia, unspecified; I10 Essential (primary) hypertension; Z20.822 Contact with and (suspected) exposure to COVID-19; F32.A Depression, unspecified; M19.90 Unspecified osteoarthritis, unspecified site; J45.909 Unspecified asthma, uncomplicated; K21.9 Gastro-esophageal reflux disease without esophagitis; I82.431 Acute embolism and thrombosis of right popliteal vein; B96.89 Other specified bacterial agents as the cause of diseases classified elsewhere; Z86.718 Personal history of other venous thrombosis and embolism; Z87.19 Personal history of other diseases of the digestive system
CPT/HCPCS: 36415; 36573; 36600; 71045; 74176; 78580; 80048; 80053; 80202; 80305; 80320; 81003; 82040; 82375; 82607; 82746; 82805; 82962; 83735; 84134; 84145; 85025; 85027; 87077; 87186; 87426; 93005; 93306; 93970; 97162; 99285; A6261; C1725; C1769; J0692; J1200; J1650; J2185; J2270; J2370; J2405; J2543; J3370; J3475; J3480; J3490; J7030; J7050; J7060; A4315; G0480